=== PATIENT | male | born 1990 | race Caucasian/White ===

== ENCOUNTER 2022-01-24 18:29 | Emergency (ER) | payer OTHER, SELFPAY ==
[2022-01-24 18:33] VITALS: BP 146/72; PULSE 80; RESP 14; TEMP 36.2; O2SAT 99
--- NOTE | 2022-01-24 19:46 | ECG_ITS ---
Measurements Intervals [place] Rate: 70 P: 43 SC: 165 QRS: 18 QRSD: 106 T: 42 QT: 365 QTc: 395 Interpretive Statements SINUS RHYTHM NORMAL ECG NO PREVIOUS ECG AVAILABLE FOR COMPARISON Electronically Signed On 01-24-2022 21:14:32 CDT by Abbe Griffin D.O.
--- NOTE | 2022-01-24 19:46 | ED.GENADULT ---
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 He is laying on the ground welding a bumper and felt a burn on the back of his right upper arm. He thinks he was shocked. Kelly slightly stiffened in the right arm and tingly for about a minute afterwards. Thinks he is in contact with electricity from 1 to 2 seconds. No loss of consciousness. No chest pain or chest pressure. No shortness of breath. No lightheadedness. He started reading online that it could affect his heart so he came to the ER to be evaluated. Related Data Allergies Allergy/AdvReac Type Severity Reaction Status Date / Time No Known Allergies Allergy Verified 01/24/22 18:30 Review of Systems Review of Systems: All systems reviewed & are unremarkable except as noted in HPI and below Constitutional: Constitutional: Denies chills, Denies fatigue and Denies fever(s) Cardiovascular: Cardiovascular: Denies chest pain, Denies radiating jaw, neck or arm pain and Denies palpitations Respiratory: Respiratory: Denies cough and Denies dyspnea Musculoskeletal: Musculoskeletal: Denies joint swelling, Denies limited range of motion, Denies muscle weakness and Denies numbness Integumentary/Breasts: Comments: Small area of burn to the back of the arm on the right. Neurologic: Denies syncope and Denies seizure-like activity [facility] Past Medical History Medical History (Updated 01/24/22 @ 20:45 by Gavino Martinez MD) Healthy adult male Surgical History Surgical History (Updated 01/24/22 @ 20:01 by Gavino Martinez MD) No history of previous surgery Social History Social History (Updated 01/24/22 @ 20:02 by Gavino Martinez MD) Smoking status: Never smoker Exam Narrative: GENERAL: Well-appearing, well-nourished, and in no acute distress. HEAD: Normocephalic, atraumatic. EYES: PERRL and EOMI. CHEST: Clear to auscultation. No respiratory distress. HEART: Regular rate and rhythm. Normal peripheral pulses. EXTREMITIES: Normal range of motion. No edema. SKIN: Warm, dry, no rash. Small burn sridhar back of right arm that is no wider than 2 mm. Very superficial. NEURO: Alert and oriented x3. PSYCH: Normal mood and affect. Course Course Emergency Course: Patient resting comfortably. EKG normal. Given reassurance. Discharge home. Vital Signs Vital signs: Vital Signs Temperature 97.1 F L 01/24/22 18:33 Pulse Rate 80 01/24/22 18:33 Respiratory Rate 14 01/24/22 18:33 Blood Pressure 146/72 H 01/24/22 18:33 Pulse Oximetry 99 01/24/22 18:33 Oxygen Delivery Room Air 01/24/22 18:33 Temperature 97.1 F L 01/24/22 18:33 Pulse Rate 80 01/24/22 18:33 Respiratory Rate 14 01/24/22 18:33 Blood Pressure 146/72 H 01/24/22 18:33 Pulse Oximetry 99 01/24/22 18:33 Oxygen Delivery Room Air 01/24/22 18:33 Medical Decision Making Vital Signs Vital Signs: Vital Signs Temperature 97.1 F L 01/24/22 18:33 Pulse Rate 80 01/24/22 18:33 Respiratory Rate 14 01/24/22 18:33 Blood Pressure 146/72 H 01/24/22 18:33 Pulse Oximetry 99 01/24/22 18:33 Oxygen Delivery Room Air 01/24/22 18:33 Temperature 97.1 F L 01/24/22 18:33 Pulse Rate 80 01/24/22 18:33 Respiratory Rate 14 01/24/22 18:33 Blood Pressure 146/72 H 01/24/22 18:33 Pulse Oximetry 99 01/24/22 18:33 Oxygen Delivery Room Air 01/24/22 18:33 ECG Data EKG #1: ECG completion date: 01/24/22 ECG completion time: 20:42 EKG Interpretation: normal rate (70), sinus rhythm, no ectopy, no ST changes, normal QRS, normal QT and NL axis Discharge Plan Discharge Clinical Impression: Electric shock Patient Disposition: Home, Self-Care Condition: Stable Ins
[2022-01-24 20:59] VITALS: BP 135/79; PULSE 92; RESP 16; TEMP 36.7; O2SAT 98
== END 2022-01-24 21:01 | disposition home or self-care (01) ==
PROVIDERS: Emergency Provider Emergency Medicine
DX: T75.4XXA Electrocution, initial encounter (principal); W86.1XXA Exposure to industrial wiring, appliances and electrical machinery, initial encounter
CPT/HCPCS: 93005; 99283